=== PATIENT | male | born 1995 | race Caucasian/White ===

== ENCOUNTER 2020-03-31 10:09 | Emergency (ER) | payer BC ==
[~2020-03-31] VITALS: Ht 172.7 cm; Wt 88.6 kg
[2020-03-31 11:00] VITALS: BP 130/70
== END 2020-03-31 11:13 | disposition home or self-care (01) ==
LOC: EMS 10:16
DX: S01.81XA Laceration without foreign body of other part of head, initial encounter (principal); W22.8XXA Striking against or struck by other objects, initial encounter; Y93.67 Activity, basketball; Y92.89 Other specified places as the place of occurrence of the external cause; Y99.8 Other external cause status
CPT/HCPCS: 12011